=== PATIENT | male | born 1950 | race Caucasian/White ===

== ENCOUNTER → 2016-04-19 | Outpatient (REF) | payer OTHER ==
[2016-04-19 11:38] LABS: MEAN CORPUSCULAR HEMOGLOBIN 31.5 pg (27.0-33.0); MEAN CORPUSCULAR HGB CONC 33.9 g/dl (32.0-36.5); WHITE BLOOD COUNT 8.2 K/mm3 (4.0-10.0)
== END ==
LOC: M SFHCLERA 11:24
PROVIDERS: ATTEND Physician Assistant
DX: E78.2 Mixed hyperlipidemia (principal)

== ENCOUNTER → 2016-08-27 | Outpatient (REF) | payer OTHER | LOC: M SFHCLERA 10:45 | PROVIDERS: ATTEND Family Medicine | DX: M79.675 Pain in left toe(s) (principal) | CPT/HCPCS: 84550; G0463 ==

== ENCOUNTER → 2017-08-14 | Outpatient (CLI) | payer OTHER | LOC: M RAD 07:28 | DX: Z12.2 Encounter for screening for malignant neoplasm of respiratory organs (principal); Z87.891 Personal history of nicotine dependence | CPT/HCPCS: G0297 ==

== ENCOUNTER → 2017-10-07 | Outpatient (REF) | payer OTHER | LOC: M SFHCPLAZ 14:15 | DX: E78.2 Mixed hyperlipidemia (principal); Z53.8 Procedure and treatment not carried out for other reasons ==

== ENCOUNTER → 2017-10-12 | Outpatient (CLI) | payer OTHER ==
[2017-10-12 17:11] LABS: ALBUMIN 3.8 GM/DL (3.2-5.2); ALBUMIN/GLOBULIN RATIO 1.19 (1.00-1.93); ALKALINE PHOSPHATASE 88 U/L (45-117); ALT/SGPT 32 U/L (12-78); ANION GAP 8 MEQ/L (8-16); AST/SGOT 22 U/L (7-37); BILIRUBIN,TOTAL 0.7 MG/DL (0.2-1.0); BLOOD UREA NITROGEN 20 MG/DL (7-18); CARBON DIOXIDE LEVEL 32 MEQ/L (21-32); CHLORIDE LEVEL 104 MEQ/L (98-107); CHOLESTEROL LEVEL 210 MG/DL (<200); CHOLESTEROL RISK RATIO 4.565 (<5); CREATININE FOR GFR 1.23 MG/DL (0.70-1.30); GLOMERULAR FILTRATION RATE > 60.0 (>49); GLUCOSE, FASTING 96 MG/DL (70-100); HDL CHOLESTEROL 46 MG/DL (>40); LDL CHOLESTEROL 134.2 MG/DL (<100); NON-HDL-C 164 MG/DL; POTASSIUM SERUM 3.5 MEQ/L (3.5-5.1); SODIUM LEVEL 144 MEQ/L (136-145); TRIGLYCERIDES LEVEL 149 MG/DL (<150)
== END ==
LOC: M WUC 08:28
DX: E78.2 Mixed hyperlipidemia (principal)
CPT/HCPCS: 80053

== ENCOUNTER → 2018-01-08 | Outpatient (CLI) | payer OTHER | LOC: M LRY 13:38 | DX: M25.552 Pain in left hip (principal) | CPT/HCPCS: 73502; G0463 ==

== ENCOUNTER → 2018-04-21 | Outpatient (CLI) | payer OTHER, MEDICARE ==
--- NOTE | 2018-04-21 18:46 | REP ---
Clinical: Lower back pain . Technique: AP, lateral, bilateral oblique, and coned-down views. Findings: Alignment and lordosis is maintained. There is no evidence for acute fracture / compression injury or subluxation. Advanced multilevel degenerative changes include endplate sclerosis, osteophytosis, disc space narrowing, and hypertrophic facet changes. Impression: Advanced multilevel degenerative changes. No acute fracture / compression injury or subluxation. Electronically Signed by Chele Chacon MD 04/21/2018 06:38 P
== END ==
LOC: M LRY 14:15
PROVIDERS: ATTEND Student in an Organized Health Care Education/Training Program
DX: M54.42 Lumbago with sciatica, left side (principal); M51.36 Other intervertebral disc degeneration, lumbar region

== ENCOUNTER → 2018-04-23 | Outpatient (CLI) | payer MEDICARE ==
[2018-04-23 09:30] LABS: HEMATOCRIT 42.2 % (42.0-52.0); HEMOGLOBIN 14.2 g/dl (13.5-17.5); MEAN CORPUSCULAR HEMOGLOBIN 30.3 pg (27.0-33.0); MEAN CORPUSCULAR HGB CONC 33.6 g/dl (32.0-36.5); PLATELET COUNT, AUTOMATED 235 10^3/uL (150-450); RED BLOOD COUNT 4.69 10^6/uL (4.30-6.10); WHITE BLOOD COUNT 5.9 10^3/uL (4.0-10.0)
[2018-04-23 09:56] LABS: ALBUMIN 3.7 GM/DL (3.2-5.2); ALT/SGPT 33 U/L (12-78); BILIRUBIN,TOTAL 0.8 MG/DL (0.2-1.0); BLOOD UREA NITROGEN 22 MG/DL (7-18); CALCIUM LEVEL 8.6 MG/DL (8.8-10.2); CARBON DIOXIDE LEVEL 30 MEQ/L (21-32); CHLORIDE LEVEL 103 MEQ/L (98-107); CHOLESTEROL LEVEL 178 MG/DL (<200); CHOLESTEROL RISK RATIO 3.787 (<5); CREATININE FOR GFR 1.18 MG/DL (0.70-1.30); GLOMERULAR FILTRATION RATE > 60.0 (>49); GLUCOSE, FASTING 95 MG/DL (70-100); HDL CHOLESTEROL 47 MG/DL (>40); LDL CHOLESTEROL 108 MG/DL (<100); NON-HDL-C 131 MG/DL; POTASSIUM SERUM 3.1 MEQ/L (3.5-5.1); SODIUM LEVEL 141 MEQ/L (136-145); TOTAL PROTEIN 6.6 GM/DL (6.4-8.2); TRIGLYCERIDES LEVEL 113 MG/DL (<150)
[2018-04-23 10:27] LABS: HEMOGLOBIN A1c 5.8 %
== END ==
LOC: M WUC 08:31
PROVIDERS: ATTEND Student in an Organized Health Care Education/Training Program
DX: Z00.00 Encounter for general adult medical examination without abnormal findings (principal)

== ENCOUNTER → 2018-05-12 | Outpatient (REF) | payer MEDICARE ==
[2018-05-12 11:52] LABS: BLOOD UREA NITROGEN 18 MG/DL (7-18); CALCIUM LEVEL 8.8 MG/DL (8.8-10.2); CARBON DIOXIDE LEVEL 33 MEQ/L (21-32); CHLORIDE LEVEL 101 MEQ/L (98-107); CREATININE FOR GFR 1.13 MG/DL (0.70-1.30); GLOMERULAR FILTRATION RATE > 60.0 (>49); GLUCOSE, FASTING 89 MG/DL (70-100); POTASSIUM SERUM 3.6 MEQ/L (3.5-5.1); SODIUM LEVEL 140 MEQ/L (136-145)
== END ==
LOC: M LABDRAWP 09:16
PROVIDERS: ATTEND Student in an Organized Health Care Education/Training Program
DX: E87.6 Hypokalemia (principal)

== ENCOUNTER → 2018-08-18 | Outpatient (CLI) | payer MEDICARE ==
--- NOTE | 2018-08-18 09:21 | REP ---
Clinical: Follow up abnormal findings. Technique: Axial noncontrast images from the thoracic inlet to the upper abdomen with coronal and sagittal re-formations. Comparison: 08/14/2017 Findings: Advanced COPD/emphysematous changes are appreciated along with moderate scattered traction bronchiectasis. Findings most pronounced involving the right lower lobe where elements of fibrosis and scarring are also identified. No effusion. No pneumothorax. No significant adenopathy appreciated. There is a new 14 mm area of density in the right lower lobe (image 53) as well as small amounts of suspected right lower lobe posterobasilar atelectasis with nodular components measuring up to approximately 12 mm. There is a 3 mm noncalcified new density in the right as azygoesophageal recess (image 24). Mediastinum demonstrates atherosclerotic changes to the thoracic aorta and coronary arteries without aortic aneurysm or cardiomegaly. No pericardial effusion. Surrounding musculoskeletal structures are intact. Limited evaluation of the upper abdomen demonstrates scattered hepatic hypodensities measuring up to 2 cm likely representing cysts along with rounded hypo and isoechoic renal lesions (left greater than right) which may represent simple and complex cysts. Impression: 1. 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 2. New areas of opacity in the right lower lobe, right base, and right as azygoesophageal recess warranting 3-month follow-up evaluation. 3. Hepatic and renal findings as described above warrant further investigation including ultrasound examination and pre/postcontrast CT if necessary. Electronically Signed by Chele Chacon MD 08/18/2018 09:13 A
== END ==
LOC: M RAD 08:48
PROVIDERS: ATTEND Physician Assistant
DX: R91.8 Other nonspecific abnormal finding of lung field (principal); I70.0 Atherosclerosis of aorta; I25.10 Atherosclerotic heart disease of native coronary artery without angina pectoris; J43.9 Emphysema, unspecified; J84.10 Pulmonary fibrosis, unspecified; K76.89 Other specified diseases of liver

== ENCOUNTER → 2018-09-10 | Outpatient (CLI) | payer MEDICARE ==
--- NOTE | 2018-09-10 14:17 | REP ---
Whole body PET CT scan: The study is performed for evaluation of right lung nodules identified on a recent chest CT dated 08/18/2018. Whole-body scanning is performed from skull base to the upper thighs. Neck and supraclavicular areas: There is artifactual uptake in sublingual salivary glands and soft palate. Chest: The small nodule in the azygo-esophageal recess of the medial right upper lobe is again identified and measures 8 mm in diameter and demonstrates non hypermetabolic uptake with a standard uptake value of 1.5. The left lower lobe lung nodules identified on the comparison CT are no longer identified today . There is dependent atelectasis and interstitial thickening in this area today. The maximal standard uptake value in this area is 2.90, borderline hypermetabolic. There are no mediastinal, hilar or axillary foci. There are no other foci in the chest. Abdomen, pelvis and upper thighs: There are no hypermetabolic foci. There is nonspecific bowel uptake. There is a 12 mm hepatic right lobe cyst. There is a 2.5 cm left renal upper pole cyst. There is a small splenule medial to the spleen. Impression: There are no hypermetabolic foci. The small right lung nodule in the azygo-esophageal recess is non hypermetabolic. The right lower lobe lung nodules identified previously are no longer present. There is interstitial thickening and atelectasis in this area today demonstrating borderline hypermetabolic uptake. The study is performed with 9.45 mCi of F 18 Electronically Signed by Rivas Johnson MD 09/10/2018 02:09 P
== END ==
LOC: M PLARAD 09:28
PROVIDERS: ATTEND Physician Assistant
DX: R91.1 Solitary pulmonary nodule (principal)
CPT/HCPCS: 78815; A9552

== ENCOUNTER → 2018-11-11 | Outpatient (CLI) | payer MEDICARE ==
[2018-11-11 12:06] LABS: BLOOD UREA NITROGEN 17 MG/DL (7-18); CALCIUM LEVEL 8.8 MG/DL (8.8-10.2); CARBON DIOXIDE LEVEL 29 MEQ/L (21-32); CHLORIDE LEVEL 105 MEQ/L (98-107); CHOLESTEROL LEVEL 171 MG/DL (<200); CHOLESTEROL RISK RATIO 4.071 (<5); GLOMERULAR FILTRATION RATE > 60.0 (>49); GLUCOSE, FASTING 90 MG/DL (70-100); HDL CHOLESTEROL 42 MG/DL (>40); LDL CHOLESTEROL 92 MG/DL (<100); NON-HDL-C 129 MG/DL; POTASSIUM SERUM 3.7 MEQ/L (3.5-5.1); SODIUM LEVEL 143 MEQ/L (136-145); TRIGLYCERIDES LEVEL 183 MG/DL (<150)
[2018-11-11 12:55] LABS: HEMOGLOBIN A1c 5.7 %
== END ==
LOC: M WUC 08:46
PROVIDERS: ATTEND Student in an Organized Health Care Education/Training Program
DX: R73.03 Prediabetes (principal); E78.2 Mixed hyperlipidemia; E87.6 Hypokalemia

== ENCOUNTER 2019-01-22 09:57 | Day surgery (SDC) | payer MEDICARE ==
[~2019-01-22] VITALS: Ht 170.2 cm; Wt 92.1 kg
[~2019-01-22 09:57] MED LIST: AMLO5TAB6 PO; ASPI81TA85 PO; ATOR1TAB21 PO; KP F1200 PO; LORA-674 PO; LOSA100T5 PO; MULTCAP PO; NS 1,000 ML IV ONE; OMEP-172 PO; TREL1AER INH
[2019-01-22] MEDS ORDERED: LIDOCAINE 2% INJ 100 MG/5 ML SDV (FOR ANES.) As Ordered ONE (10:06)
[2019-01-22] MEDS ORDERED: PROPOFOL 200 MG/20 ML VIAL As Ordered ONE (10:06)
[2019-01-22] MEDS ORDERED: GLYCOPYRROLATE INJ 0.2 MG/ML 2 ML VIAL As Ordered ONE (11:05)
--- NOTE | 2019-01-22 11:21 | ROOR ---
Patient Name: Aden Nayak Procedure Date: 01/22/2019 10:54 AM Date of : 1950 Age: 68 Room: [facility] Gender: Male Note Status: Finalized Procedure: Colonoscopy Indications: High risk colon cancer surveillance: Personal history of colonic polyps Providers: Sree Huntley Jr, MD Referring MD: Nereida Brantley MD Requesting Provider: Medicines: Propofol per Anesthesia Complications: No immediate complications. Procedure: Pre-Anesthesia Assessment: - Prior to the procedure, a History and Physical was performed, and patient medications and allergies were reviewed. The patient is competent. The risks and benefits of the procedure and the sedation options and risks were discussed with the patient. All questions were answered and informed consent was obtained. Patient identification and proposed procedure were verified by the physician and the nurse in the pre-procedure area and in the procedure room. Mental Status Examination: alert and oriented. Airway Examination: normal oropharyngeal airway and neck mobility. Respiratory Examination: clear to auscultation. CV Examination: normal. ASA Grade Assessment: II - A patient with mild systemic disease. After reviewing the risks and benefits, the patient was deemed in satisfactory condition to undergo the procedure. The anesthesia plan was to use moderate sedation / analgesia (conscious sedation). Immediately prior to administration of medications, the patient was re-assessed for adequacy to receive sedatives. The heart rate, respiratory rate, oxygen saturations, blood pressure, adequacy of pulmonary ventilation, and response to care were monitored throughout the procedure. The physical status of the patient was re-assessed after the procedure. The Colonoscope was introduced through the anus and advanced to the cecum, identified by appendiceal orifice and ileocecal valve. The colonoscopy was performed without difficulty. The patient tolerated the procedure well. The quality of the bowel preparation was adequate. Findings: The rectum, recto-sigmoid colon, cecum, appendiceal orifice and ileocecal valve appeared normal. Four polyps were found in the descending colon, transverse colon and ascending colon. The polyps were small in size. These polyps were removed with a cold snare. Resection was complete, but the polyp tissue was only partially retrieved. Multiple small and large-mouthed diverticula were found in the sigmoid colon. Impression: - The rectum, recto-sigmoid colon, cecum, appendiceal orifice and ileocecal valve are normal. - Four small polyps in the descending colon, in the transverse colon and in the ascending colon, removed with a cold snare. Complete resection. Partial retrieval. - Diverticulosis in the sigmoid colon. Recommendation: - Discharge patient to home (ambulatory). - Repeat colonoscopy in 5 years for surveillance. Sree Huntley MD Sree Huntley Jr, MD 01/22/2019 11:21:32 AM Electronically signed by Sree Huntley Jr, MD Number of Addenda: 0 Note Initiated On: 01/22/2019 10:54 AM Estimated Blood Loss: Estimated blood loss: none.
[2019-01-22 11:35] VITALS: BP 137/65
== END 2019-01-22 11:45 | disposition home or self-care (01) ==
LOC: M OPP 09:57
PROVIDERS: ATTEND Surgery
DX: Z86.010 Personal history of colon polyps (principal); D12.6 Benign neoplasm of colon, unspecified; K57.30 Diverticulosis of large intestine without perforation or abscess without bleeding; I10 Essential (primary) hypertension; E78.00 Pure hypercholesterolemia, unspecified; R12 Heartburn; K21.9 Gastro-esophageal reflux disease without esophagitis; J44.9 Chronic obstructive pulmonary disease, unspecified; Z87.891 Personal history of nicotine dependence; Z88.2 Allergy status to sulfonamides; Z79.51 Long term (current) use of inhaled steroids; Z79.82 Long term (current) use of aspirin; Z79.899 Other long term (current) drug therapy

== ENCOUNTER → 2019-02-10 | Outpatient (CLI) | payer MEDICARE ==
[~2019-02-10] MED LIST changes: -NS 1,000 ML IV ONE
[2019-02-10 10:36] LABS: CHOLESTEROL RISK RATIO 4.166 (<5)
[2019-02-10 10:40] LABS: HEMOGLOBIN A1c 6.2 %
== END ==
LOC: M WUC 08:24
PROVIDERS: ATTEND Student in an Organized Health Care Education/Training Program
DX: E78.5 Hyperlipidemia, unspecified (principal); R73.03 Prediabetes

== ENCOUNTER → 2019-02-12 | Outpatient (CLI) | payer MEDICARE ==
--- NOTE | 2019-02-12 08:49 | REP ---
ULTRASOUND ABDOMINAL AORTA: Real-time sonographic evaluation of the abdominal aort is performed. There is no sonographic evidence of aortic aneurysm. Maximum AP diameter of the abdominal aorta just below the diaphragm is 2.3 cm at the renal arteries and mid aspect 2.1 cm and distally 1.5 cm. Common iliac arteries are normal in caliber, right measuring 9 x 9 mm and left 10 x 9 mm. IMPRESSION: No sonographic evidence of abdominal aortic aneurysm. Electronically Signed by Rivas Vines MD 02/12/2019 12:28 P
== END ==
LOC: M RAD 06:24
PROVIDERS: ATTEND Student in an Organized Health Care Education/Training Program
DX: Z13.6 Encounter for screening for cardiovascular disorders (principal); Z87.891 Personal history of nicotine dependence

== ENCOUNTER → 2019-04-28 | Outpatient (CLI) | payer MEDICARE ==
[~2019-04-28] MED LIST changes: -OMEP-172 PO; +OMEP1CAP73 PO
--- NOTE | 2019-04-29 06:01 | REP ---
Clinical: Follow up pulmonary nodule. Technique: Axial noncontrast images from the thoracic inlet to the upper abdomen with coronal and sagittal re-formations. Comparison: 08/18/2018, 08/14/2017 . Findings: Advanced COPD/emphysematous changes are again appreciated with minimal residual basilar scarring (right greater than left). Previously identified nodules/small consolidations have resolved. No suspicious nodule/mass identified. No consolidation, effusion, or pneumothorax. Tracheobronchial tree appears patent. No significant adenopathy. Relatively stable normal appearance to the heart/pericardium. Atherosclerotic changes to the thoracic aorta again noted. Musculoskeletal structures are intact. Hepatic and renal hypodensities again noted and consistent with cysts. Impression: Advanced emphysematous disease. No significant pulmonary nodule/mass. Electronically Signed by Chele Chacon MD 04/29/2019 05:53 A
== END ==
LOC: M RAD 09:55
PROVIDERS: ATTEND Internal Medicine Pulmonary Disease
DX: J43.9 Emphysema, unspecified (principal); I70.0 Atherosclerosis of aorta

== ENCOUNTER → 2019-08-07 | Outpatient (REF) | payer MEDICARE | LOC: M SFHCPLAZ 14:21 | DX: R73.03 Prediabetes (principal); M10.072 Idiopathic gout, left ankle and foot; E78.5 Hyperlipidemia, unspecified ==

== ENCOUNTER → 2019-08-21 | Outpatient (CLI) | payer MEDICARE ==
[2019-08-21 12:38] LABS: HEMOGLOBIN A1c 6.4 %
[2019-08-21 12:50] LABS: BLOOD UREA NITROGEN 18 MG/DL (7-18); CALCIUM LEVEL 8.9 MG/DL (8.8-10.2); CARBON DIOXIDE LEVEL 30 MEQ/L (21-32); CHLORIDE LEVEL 103 MEQ/L (98-107); CHOLESTEROL LEVEL 178 MG/DL (<200); CHOLESTEROL RISK RATIO 4.238 (<5); CREATININE FOR GFR 1.14 MG/DL (0.70-1.30); GLOMERULAR FILTRATION RATE > 60.0 (>49); GLUCOSE, FASTING 82 MG/DL (70-100); HDL CHOLESTEROL 42 MG/DL (>40); LDL CHOLESTEROL 108 MG/DL (<100); NON-HDL-C 136 MG/DL; POTASSIUM SERUM 3.5 MEQ/L (3.5-5.1); SODIUM LEVEL 142 MEQ/L (136-145); TRIGLYCERIDES LEVEL 142 MG/DL (<150)
== END ==
LOC: M WUC 10:11
PROVIDERS: ATTEND Student in an Organized Health Care Education/Training Program
DX: R73.03 Prediabetes (principal); M10.072 Idiopathic gout, left ankle and foot; E78.5 Hyperlipidemia, unspecified

== ENCOUNTER → 2019-09-16 | Outpatient (REF) | payer MEDICARE ==
[~2019-09-16] MED LIST changes: +AMLO1TAB24 PO; -AMLO5TAB6 PO; -ASPI81TA85 PO; +ASPI81TA86 PO
[2019-12-07 14:34] LABS: GLUCOSE, FASTING SEE SEPARATE REPORT
== END ==
LOC: M SFHCPLAZ 17:09
PROVIDERS: ATTEND Student in an Organized Health Care Education/Training Program
DX: Z87.39 Personal history of other diseases of the musculoskeletal system and connective tissue (principal)

== ENCOUNTER → 2019-10-23 | Outpatient (CLI) | payer MEDICARE, SELFPAY | LOC: M LABSMTC 12:09 | PROVIDERS: ATTEND Pediatrics | DX: Z20.828 Contact with and (suspected) exposure to other viral communicable diseases (principal); Z11.59 Encounter for screening for other viral diseases ==

== ENCOUNTER → 2020-01-15 | Outpatient (CLI) | payer MEDICARE ==
[2020-01-15 12:23] LABS: BLOOD UREA NITROGEN 17 MG/DL (7-18); CARBON DIOXIDE LEVEL 31 MEQ/L (21-32); CHLORIDE LEVEL 102 MEQ/L (98-107); CREATININE FOR GFR 1.18 MG/DL (0.70-1.30); GLOMERULAR FILTRATION RATE > 60.0 (>49); GLUCOSE, FASTING 96 MG/DL (70-100); POTASSIUM SERUM 3.5 MEQ/L (3.5-5.1); SODIUM LEVEL 141 MEQ/L (136-145); URIC ACID 8.1 MG/DL (3.5-7.2)
== END ==
LOC: M WUC 09:24
PROVIDERS: ATTEND Student in an Organized Health Care Education/Training Program
DX: I10 Essential (primary) hypertension (principal); E78.5 Hyperlipidemia, unspecified; J44.9 Chronic obstructive pulmonary disease, unspecified

== ENCOUNTER → 2020-04-05 | Outpatient (CLI) | payer MEDICARE ==
--- NOTE | 2020-04-05 09:30 | REP ---
INDICATION: ABN FINDINGS LUNG FIELD COMPARISON: 04/28/2019, 08/14/2017 TECHNIQUE: Axial noncontrast images from the thoracic inlet to the upper abdomen using low-dose lung screening technique (LDCT). FINDINGS: Lung [place] demonstrate advanced COPD/emphysematous changes along with bronchiectasis and scattered scarring/fibrosis. Previously identified areas of focal opacity/nodularity have resolved. No acute consolidation, significant nodule, or mass. No effusion. No pneumothorax. Atherosclerotic changes of the thoracic aorta and coronary arteries again noted and relatively stable. Osseous structures are intact and without acute abnormality. IMPRESSION: Previously identified ill-defined nodules/densities have resolved. Chronic advanced COPD/emphysematous disease. No acute process appreciated. Lung-RADS category 2. Recommendations include annual low-dose CT surveillance. <Electronically signed by Chele Chacon > 04/05/20 0901
== END ==
LOC: M RAD 09:06
PROVIDERS: ATTEND Internal Medicine Pulmonary Disease
DX: R91.8 Other nonspecific abnormal finding of lung field (principal)

== ENCOUNTER → 2020-05-13 | Outpatient (CLI) | payer MEDICARE ==
[2020-05-13 12:05] LABS: HEMOGLOBIN A1c 5.5 %
== END ==
LOC: M WUC 09:21
PROVIDERS: ATTEND Student in an Organized Health Care Education/Training Program
DX: R73.03 Prediabetes (principal)

== ENCOUNTER → 2020-05-17 | Outpatient (REF) | payer MEDICARE | LOC: M SFHCPLAZ 14:47 | PROVIDERS: ATTEND Family Medicine | DX: E78.2 Mixed hyperlipidemia (principal); Z87.39 Personal history of other diseases of the musculoskeletal system and connective tissue ==

== ENCOUNTER → 2020-08-26 | Outpatient (REF) | payer MEDICARE ==
[2020-08-26 12:36] LABS: ALBUMIN 3.8 GM/DL (3.2-5.2); BILIRUBIN,DIRECT 0.2 MG/DL (0.0-0.2); BILIRUBIN,TOTAL 0.8 MG/DL (0.2-1.0); TOTAL PROTEIN 7.1 GM/DL (6.4-8.2); URIC ACID 6.6 MG/DL (3.5-7.2)
== END ==
LOC: M WUC 11:18
PROVIDERS: ATTEND Student in an Organized Health Care Education/Training Program
DX: Z87.39 Personal history of other diseases of the musculoskeletal system and connective tissue (principal); E78.2 Mixed hyperlipidemia

== ENCOUNTER → 2020-11-02 | Outpatient (CLI) | payer MEDICARE ==
[2020-11-02 15:51] LABS: BASO % 0.3 % (0.0-1.0); EOS # 0.2 10^3/uL (0.0-0.5); EOS % 2.8 % (0.0-3.0); HEMATOCRIT 45.4 % (42.0-52.0); HEMOGLOBIN 15.1 g/dl (13.5-17.5); LYMPH # 1.4 10^3/uL (1.5-5.0); LYMPH % 18.3 % (24.0-44.0); MEAN CORPUSCULAR HEMOGLOBIN 31.3 pg (27.0-33.0); MEAN CORPUSCULAR HGB CONC 33.3 g/dl (32.0-36.5); MEAN CORPUSCULAR VOLUME 94.2 fl (80.0-96.0); MONO # 0.9 10^3/uL (0.0-0.8); NEUTROPHILS # 5.2 10^3/uL (1.5-8.5); NEUTROPHILS % 66.2 % (36.0-66.0); PLATELET COUNT, AUTOMATED 245 10^3/uL (150-450); RED BLOOD COUNT 4.82 10^6/uL (4.30-6.10); WHITE BLOOD COUNT 7.9 10^3/uL (4.0-10.0)
[2020-11-02 15:58] LABS: ALBUMIN 3.6 GM/DL (3.2-5.2); ALT/SGPT 37 U/L (12-78); BLOOD UREA NITROGEN 16 MG/DL (7-18); CALCIUM LEVEL 9.2 MG/DL (8.8-10.2); CARBON DIOXIDE LEVEL 32 MEQ/L (21-32); CHLORIDE LEVEL 101 MEQ/L (98-107); CHOLESTEROL LEVEL 181 MG/DL (<200); CREATININE FOR GFR 1.04 MG/DL (0.70-1.30); GLOMERULAR FILTRATION RATE > 60.0 (>49); GLUCOSE, FASTING 90 MG/DL (70-100); HDL CHOLESTEROL 50 MG/DL (>40); LDL CHOLESTEROL 97 MG/DL (<100); NON-HDL-C 131 MG/DL; POTASSIUM SERUM 3.5 MEQ/L (3.5-5.1); SODIUM LEVEL 140 MEQ/L (136-145); TOTAL PROTEIN 6.8 GM/DL (6.4-8.2); TRIGLYCERIDES LEVEL 172 MG/DL (<150)
[2020-11-02 16:17] LABS: HEMOGLOBIN A1c 5.7 %
== END ==
LOC: M WUC 11:17
PROVIDERS: ATTEND Student in an Organized Health Care Education/Training Program
DX: E78.2 Mixed hyperlipidemia (principal); K21.9 Gastro-esophageal reflux disease without esophagitis; R73.03 Prediabetes

== ENCOUNTER → 2021-02-13 | Outpatient (CLI) | payer MEDICARE ==
[2021-02-13 12:30] LABS: CHOLESTEROL RISK RATIO 3.472 (<5); URIC ACID 6.1 MG/DL (3.5-7.2)
== END ==
LOC: M WUC 09:15
PROVIDERS: ATTEND Student in an Organized Health Care Education/Training Program
DX: E79.0 Hyperuricemia without signs of inflammatory arthritis and tophaceous disease (principal); E78.2 Mixed hyperlipidemia

== ENCOUNTER → 2021-04-14 | Outpatient (CLI) | payer MEDICARE ==
[2021-04-14 10:08] LABS: CALCIUM LEVEL 9.1 MG/DL (8.8-10.2); CREATININE FOR GFR 1.31 MG/DL (0.70-1.30); GLOMERULAR FILTRATION RATE 57.8 (>49); POTASSIUM SERUM 3.5 MEQ/L (3.5-5.1)
== END ==
LOC: M WUC 08:29
PROVIDERS: ATTEND Student in an Organized Health Care Education/Training Program
DX: E87.6 Hypokalemia (principal)

== ENCOUNTER → 2021-04-20 | Outpatient (CLI) | payer MEDICARE | LOC: M RAD 10:54 | PROVIDERS: ATTEND Internal Medicine Pulmonary Disease | DX: Z87.891 Personal history of nicotine dependence (principal); F17.210 Nicotine dependence, cigarettes, uncomplicated ==

== ENCOUNTER → 2021-05-09 | Outpatient (CLI) | payer MEDICARE ==
[2021-05-09 13:25] LABS: BLOOD UREA NITROGEN 19 MG/DL (7-18); CALCIUM LEVEL 9.4 MG/DL (8.8-10.2); CARBON DIOXIDE LEVEL 33 MEQ/L (21-32); CHLORIDE LEVEL 102 MEQ/L (98-107); CHOLESTEROL LEVEL 174 MG/DL (<200); CHOLESTEROL RISK RATIO 3.163 (<5); CREATININE FOR GFR 1.21 MG/DL (0.70-1.30); GLOMERULAR FILTRATION RATE > 60.0 (>42); GLUCOSE, FASTING 93 MG/DL (70-100); HDL CHOLESTEROL 55 MG/DL (>40); LDL CHOLESTEROL 95 MG/DL (<100); NON-HDL-C 119 MG/DL; POTASSIUM SERUM 3.1 MEQ/L (3.5-5.1); SODIUM LEVEL 140 MEQ/L (136-145); TRIGLYCERIDES LEVEL 119 MG/DL (<150)
== END ==
LOC: M WUC 08:54
PROVIDERS: ATTEND Student in an Organized Health Care Education/Training Program
DX: R79.89 Other specified abnormal findings of blood chemistry (principal); E78.2 Mixed hyperlipidemia

== ENCOUNTER → 2021-07-07 | Outpatient (CLI) | payer MEDICARE ==
[2021-07-07 13:09] LABS: ALBUMIN 3.7 GM/DL (3.2-5.2); BILIRUBIN,TOTAL 0.8 MG/DL (0.2-1.0); CALCIUM LEVEL 8.9 MG/DL (8.8-10.2); CREATININE FOR GFR 1.32 MG/DL (0.70-1.30); GLOMERULAR FILTRATION RATE 57.1 (>42); POTASSIUM SERUM 3.6 MEQ/L (3.5-5.1); TOTAL PROTEIN 6.9 GM/DL (6.4-8.2)
== END ==
LOC: M WUC 09:02
PROVIDERS: ATTEND Student in an Organized Health Care Education/Training Program
DX: E87.6 Hypokalemia (principal)

== ENCOUNTER → 2021-07-19 | Outpatient (CLI) | payer MEDICARE ==
[2021-07-19 12:37] LABS: APPEARANCE, URINE CLEAR (CLEAR); BACTERIA, URINE AUTO NEGATIVE (NEGATIVE); BILIRUBIN, URINE AUTO NEGATIVE (NEGATIVE); BLOOD, URINE BLOOD NEGATIVE (NEGATIVE); COLOR, URINE YELLOW (YELLOW); GLUCOSE, URINE (UA) AUTO NEGATIVE (NEGATIVE); KETONE, URINE AUTO NEGATIVE (NEGATIVE); LEUKOCYTE ESTERASE, URINE AUTO NEGATIVE (NEGATIVE); NITRITE, URINE AUTO NEGATIVE (NEGATIVE); PROTEIN, URINE AUTO NEGATIVE (NEGATIVE); RBC, URINE AUTO 0 /HPF (0-3); SPECIFIC GRAVITY URINE AUTO 1.014 (1.002-1.035); SQUAMOUS EPITHELIAL CELL UR AU 0 /HPF (0-6); UROBILINOGEN, URINE AUTO 0.2 mg/dL (0.0-2.0); WBC, URINE AUTO 2 /HPF (0-3)
[2021-07-19 13:06] LABS: CREATININE FOR GFR 1.39 MG/DL (0.70-1.30); GLOMERULAR FILTRATION RATE 53.8 (>42)
[2021-07-19 15:37] LABS: UREA NITROGEN RANDOM URINE 676 MG/DL
== END ==
LOC: M WUC 08:32
PROVIDERS: ATTEND Student in an Organized Health Care Education/Training Program
DX: R79.89 Other specified abnormal findings of blood chemistry (principal)

== ENCOUNTER → 2021-07-27 | Outpatient (CLI) | payer MEDICARE | LOC: M RAD 12:32 | PROVIDERS: ATTEND Student in an Organized Health Care Education/Training Program | DX: R79.89 Other specified abnormal findings of blood chemistry (principal); N28.1 Cyst of kidney, acquired ==

== ENCOUNTER → 2021-08-15 | Outpatient (CLI) | payer MEDICARE ==
[2021-08-15 11:30] LABS: BLOOD UREA NITROGEN 17 MG/DL (7-18); CALCIUM LEVEL 8.9 MG/DL (8.8-10.2); CARBON DIOXIDE LEVEL 24 MEQ/L (21-32); CHLORIDE LEVEL 110 MEQ/L (98-107); CREATININE FOR GFR 1.08 MG/DL (0.70-1.30); GLOMERULAR FILTRATION RATE > 60.0 (>42); GLUCOSE, FASTING 86 MG/DL (70-100); SODIUM LEVEL 141 MEQ/L (136-145)
== END ==
LOC: M WUC 08:38
PROVIDERS: ATTEND Nurse Practitioner Women's Health
DX: N28.1 Cyst of kidney, acquired (principal); Z12.5 Encounter for screening for malignant neoplasm of prostate
CPT/HCPCS: 36415; 80048; G0103

== ENCOUNTER → 2021-12-25 | Outpatient (CLI) | payer MEDICARE ==
[2021-12-25 13:15] LABS: HEMATOCRIT 44.5 % (42.0-52.0); HEMOGLOBIN 14.9 g/dl (13.5-17.5); MEAN CORPUSCULAR HEMOGLOBIN 31.6 pg (27.0-33.0); MEAN CORPUSCULAR HGB CONC 33.5 g/dl (32.0-36.5); MEAN CORPUSCULAR VOLUME 94.3 fl (80.0-96.0); PLATELET COUNT, AUTOMATED 247 10^3/uL (150-450); RED BLOOD COUNT 4.72 10^6/uL (4.30-6.10)
[2021-12-25 14:47] LABS: ALBUMIN 3.6 GM/DL (3.2-5.2); ALT/SGPT 32 U/L (12-78); BILIRUBIN,TOTAL 0.7 MG/DL (0.2-1.0); BLOOD UREA NITROGEN 14 MG/DL (7-18); CARBON DIOXIDE LEVEL 27 MEQ/L (21-32); CHLORIDE LEVEL 107 MEQ/L (98-107); CHOLESTEROL LEVEL 160 MG/DL (<200); CHOLESTEROL RISK RATIO 2.807 (<5); CREATININE FOR GFR 1.21 MG/DL (0.70-1.30); GLOMERULAR FILTRATION RATE > 60.0 (>42); GLUCOSE, FASTING 81 MG/DL (70-100); HDL CHOLESTEROL 57 MG/DL (>40); LDL CHOLESTEROL 84 MG/DL (<100); NON-HDL-C 103 MG/DL; POTASSIUM SERUM 4.2 MEQ/L (3.5-5.1); SODIUM LEVEL 139 MEQ/L (136-145); TOTAL PROTEIN 6.7 GM/DL (6.4-8.2); TRIGLYCERIDES LEVEL 97 MG/DL (<150); URIC ACID 4.8 MG/DL (3.5-7.2)
== END ==
LOC: M WUC 08:16
PROVIDERS: ATTEND Student in an Organized Health Care Education/Training Program
DX: I10 Essential (primary) hypertension (principal); E78.2 Mixed hyperlipidemia; M1A.9XX0 Chronic gout, unspecified, without tophus (tophi)

== ENCOUNTER → 2022-01-18 | Outpatient (CLI) | payer MEDICARE | LOC: M WHC 09:27 | PROVIDERS: ATTEND Nurse Practitioner Women's Health | DX: N28.1 Cyst of kidney, acquired (principal) ==

== ENCOUNTER → 2022-03-28 | Outpatient (REF) | payer MEDICARE | LOC: M SFHCPLAZ 16:55 | PROVIDERS: ATTEND Physician Assistant | DX: J44.1 Chronic obstructive pulmonary disease with (acute) exacerbation (principal) ==

== ENCOUNTER → 2022-06-07 | Outpatient (CLI) | payer MEDICARE | LOC: M RAD 08:51 | PROVIDERS: ATTEND Internal Medicine Pulmonary Disease | DX: R60.0 Localized edema (principal) ==

== ENCOUNTER → 2022-12-06 | Outpatient (CLI) | payer MEDICARE ==
[~2022-12-06] MED LIST changes: +LORA-1041 PO; -LORA-674 PO
[2022-12-06 15:04] LABS: BASO % 0.5 % (0.0-1.0); EOS # 0.2 10^3/uL (0.0-0.5); EOS % 3.2 % (0.0-3.0); HEMATOCRIT 45.4 % (42.0-52.0); HEMOGLOBIN 14.6 g/dl (13.5-17.5); LYMPH # 1.1 10^3/uL (1.5-5.0); LYMPH % 18.2 % (24.0-44.0); MEAN CORPUSCULAR HGB CONC 32.2 g/dl (32.0-36.5); MEAN CORPUSCULAR VOLUME 96.4 fl (80.0-96.0); MONO # 0.6 10^3/uL (0.0-0.8); MONO % 9.6 % (2.0-8.0); NEUTROPHILS # 4.2 10^3/uL (1.5-8.5); NEUTROPHILS % 68.3 % (36.0-66.0); PLATELET COUNT, AUTOMATED 237 10^3/uL (150-450); RED BLOOD COUNT 4.71 10^6/uL (4.30-6.10); WHITE BLOOD COUNT 6.2 10^3/uL (4.0-10.0)
== END ==
LOC: M WUC 10:19
PROVIDERS: ATTEND Student in an Organized Health Care Education/Training Program
DX: M1A.9XX0 Chronic gout, unspecified, without tophus (tophi) (principal); R73.03 Prediabetes; Z12.5 Encounter for screening for malignant neoplasm of prostate; K21.9 Gastro-esophageal reflux disease without esophagitis; N28.1 Cyst of kidney, acquired
CPT/HCPCS: 36415; 80048; 83036; 83735; 84550; 85025; G0103

== ENCOUNTER → 2022-12-21 | Outpatient (CLI) | payer MEDICARE ==
[2022-12-21 11:36] LABS: BLOOD UREA NITROGEN 17 MG/DL (9-23); CALCIUM LEVEL 9.5 MG/DL (8.3-10.6); CARBON DIOXIDE LEVEL 28 MMOL/L (20-31); CHLORIDE LEVEL 107 MMOL/L (98-107); CHOLESTEROL LEVEL 172 MG/DL (<200); CHOLESTEROL RISK RATIO 3.14 (<5); CREATININE FOR GFR 1.15 MG/DL (0.70-1.30); GLOMERULAR FILTRATION RATE > 60.0 (>42); GLUCOSE, FASTING 96 MG/DL (74-106); HDL CHOLESTEROL 54.7 MG/DL (>40); LDL CHOLESTEROL 99.1 MG/DL (<100); NON-HDL-C 117.3 MG/DL; POTASSIUM SERUM 4.5 MMOL/L (3.5-5.1); SODIUM LEVEL 142 MMOL/L (136-145); TRIGLYCERIDES LEVEL 91 MG/DL (<150)
== END ==
LOC: M PLALAB 09:23
PROVIDERS: ATTEND Student in an Organized Health Care Education/Training Program
DX: E78.2 Mixed hyperlipidemia (principal); I10 Essential (primary) hypertension

== ENCOUNTER → 2023-07-09 | Outpatient (CLI) | payer MEDICARE ==
[2023-07-09 11:04] LABS: HEMATOCRIT 44.2 % (42.0-52.0); HEMOGLOBIN 14.7 g/dl (13.5-17.5); MEAN CORPUSCULAR HEMOGLOBIN 31.7 pg (27.0-33.0); MEAN CORPUSCULAR HGB CONC 33.3 g/dl (32.0-36.5); MEAN CORPUSCULAR VOLUME 95.5 fl (80.0-96.0); PLATELET COUNT, AUTOMATED 222 10^3/uL (150-450); RED BLOOD COUNT 4.63 10^6/uL (4.30-6.10); WHITE BLOOD COUNT 6.5 10^3/uL (4.0-10.0)
[2023-07-09 11:28] LABS: PSA SCREENING 0.44 NG/ML (< 4.00)
[2023-07-09 11:29] LABS: ALBUMIN 3.7 G/DL (3.2-5.2); BILIRUBIN,TOTAL 0.7 MG/DL (0.3-1.2); CALCIUM LEVEL 8.8 MG/DL (8.3-10.6); CHOLESTEROL RISK RATIO 3.18 (<5); CREATININE FOR GFR 1.34 MG/DL (0.70-1.30); GLOMERULAR FILTRATION RATE 55.8 (>42); HDL CHOLESTEROL 48.4 MG/DL (>40); LDL CHOLESTEROL 88.4 MG/DL (<100); NON-HDL-C 105.6 MG/DL; POTASSIUM SERUM 3.9 MMOL/L (3.5-5.1); TOTAL PROTEIN 6.4 G/DL (5.7-8.2)
[2023-07-09 11:32] LABS: THYROID STIMULATING HORMONE 14.866 uIU/ML (0.55-4.78)
[2023-07-09 11:44] LABS: HEMOGLOBIN A1c 5.6 % (4.0-6.0)
== END ==
LOC: M WUC 08:05
PROVIDERS: ATTEND Student in an Organized Health Care Education/Training Program
DX: I10 Essential (primary) hypertension (principal); E78.2 Mixed hyperlipidemia; E66.9 Obesity, unspecified; R73.03 Prediabetes; Z12.5 Encounter for screening for malignant neoplasm of prostate
CPT/HCPCS: 36415; 80053; 80061; 83036; 84443; 85027; G0103